=== PATIENT | female | born 1955 | race Caucasian/White ===

== ENCOUNTER 2022-02-26 07:54 | Day surgery (SDC) | payer MEDICARE, MEDICAID ==
[2022-02-21 10:41] LABS: BASOPHILS # (AUTO) 0.1 X10'3 (0-0.2); BASOPHILS % (AUTO) 1.1 % (0-1); EOSINOPHILS # (AUTO) 0.1 X10'3 (0-0.9); EOSINOPHILS % (AUTO) 1.3 % (0-6); LYMPHOCYTES # (AUTO) 1.2 X10'3 (1.1-4.8); LYMPHOCYTES % (AUTO) 22.1 % (21-51); MEAN CORPUSCULAR HEMOGLOBIN 30.2 PG (27.0-31.0); MEAN CORPUSCULAR HGB CONC 34.5 g/dL (33.0-36.5); MEAN CORPUSCULAR VOLUME 87.4 FL (78-98); MEAN PLATELET VOLUME 8.3 FL (7.4-10.4); MONOCYTES # (AUTO) 0.4 X10'3 (0-0.9); MONOCYTES % (AUTO) 8.1 % (2-12); NEUTROPHILS # (AUTO) 3.6 X10'3 (1.8-7.7); NEUTROPHILS % (AUTO) 67.4 % (42-75); PRE OP HEMATOCRIT 41.7 % (35.0-45.0); PRE OP HEMOGLOBIN 14.4 g/dL (12.0-16.0); PRE OP PLATELET COUNT 221 X10'3 (140-440); RED BLOOD COUNT 4.77 X10'6 (4.20-5.60); RED CELL DISTRIBUTION WIDTH 13.6 % (11.5-14.5)
[2022-02-21 10:51] LABS: ALBUMIN 3.9 G/DL (3.4-5.0); ALBUMIN/GLOBULIN RATIO 1.2 (1.1-1.5); ALKALINE PHOSPHATASE 71 IU/L (46-116); BLOOD UREA NITROGEN 16 MG/DL (7-18); BUN/CREATININE RATIO 19.3 (6.6-38.0); CALCIUM 9.8 MG/DL (8.5-10.1); CHLORIDE 105 MMOL/L (99-107); CREATININE 0.83 MG/DL (0.40-0.90); PRE OP ALT 27 U/L (30-65); PRE OP ANION GAP 7 (8-16); PRE OP AST 14 U/L (10-37); PRE OP BILIRUB, TOTAL 0.4 MG/DL (0.0-1.0); PRE OP GLUCOSE 110 MG/DL (70-104); PRE OP POTASSIUM 4.7 MMOL/L (3.4-5.1); PRE OP SODIUM 140 MMOL/L (135-145); TOTAL CARBON DIOXIDE 28.2 MMOL/L (24-32); TOTAL PROTEIN 7.2 G/DL (6.4-8.2); eGFR 69 ML/MIN
[~2022-02-26] VITALS: Ht 170.2 cm; Wt 71.0 kg
[2022-02-26] VITALS (14 sets, daily range): BP systolic 110–128; BP diastolic 61–76
[~2022-02-26 07:54] MED LIST: BUPIVAcaine/PF 2.5 mg/ml (0.25%) 30ml vial ONE; CEFAZOLIN IV ONE; D5W IV ONE; famotidine 20mg tablet PO ONE; ringers solution, lacted 500 ML IV SCH
[2022-02-26] MEDS ORDERED: ASCO-336 PO (09:04)
[2022-02-26] MEDS ORDERED: BUPIVAcaine/PF 2.5 mg/ml (0.25%) 30ml vial ONE (09:39)
[2022-02-26] MEDS ORDERED: LIDOcaine 0.5% (5mg/ml) 50ml vial ONE (09:55)
[2022-02-26] MEDS ORDERED: fentaNYL/PF 50MCG/1 ML 2ML syringe ONE (10:02)
[2022-02-26] MEDS ORDERED: MIDAZolam 1 MG/ML 5ML VIAL ONE (10:02)
[2022-02-26] MEDS ORDERED: ceFAZolin 1000mg inj ONE (10:11)
--- NOTE | 2022-02-26 10:26 | NUR ---
Received from OR via [facility] , accompanied by Anesthesiologist DR BARRETT and report given by Anesthesiolgist. PT PRESENTS WITH PIV 20G LEFT HAND, DRESSING ON RIGHT HAND/WRIST CDI, VSS. Addendum: 02/26/22 at 1041 by Apolonia Will RN, RN Amended: Links added.
--- NOTE | 2022-02-26 12:26 | NUR ---
PT UP AND DRESSED, ABLE TO VOID, VSS, DENIES ANY PAIN, PIV D/CD- CANNULA INTACT, DISCUSSED HOME CARE FOR NASAL IRRIGATION AND MEDICATIONS, PT USED OCEAN SPRAY AND OINTMENT BEFORE LEAVING, ALL QUESTIONS ANSWERED, FRESH GAUZE PLACE UNDER NOSE, PT TAKEN WITH SUPPLIES AND BELONGINGS TO VEHICLE, TRANSPORTED BY FRIEND HOME. Addendum: 02/26/22 at 1228 by Apolonia Will RN, RN Amended: Links added.
== END 2022-02-26 12:26 | disposition home or self-care (01) ==
LOC: PAS 07:54
PROVIDERS: ATTEND Orthopaedic Surgery Hand Surgery
DX: M65.4 Radial styloid tenosynovitis [de Quervain] (principal); G43.909 Migraine, unspecified, not intractable, without status migrainosus; F41.9 Anxiety disorder, unspecified; G62.9 Polyneuropathy, unspecified; M19.90 Unspecified osteoarthritis, unspecified site; Z79.899 Other long term (current) drug therapy; Z98.890 Other specified postprocedural states; Z96.642 Presence of left artificial hip joint
CPT/HCPCS: 25000; 36415; 80053; 82948; 85025; 93005; A6222; J0690; J2250; J3010; J3490; J7030; J7120; Z7506; Z7512; A4215; A4618; A6449; A7000